=== PATIENT | female | born 1970 | race Hispanic/Latino ===

== ENCOUNTER 2019-07-06 | Emergency (ER) | payer SELFPAY ==
[2019-07-06] MEDS ORDERED: METOPROL TAR25 MG PO (18:58)
[2019-07-06 19:42] LABS: HEMATOCRIT 38.1 % (37.0-47.0); HEMOGLOBIN 12.5 g/dl (12.0-16.0); IMMATURE GRANULOCYTES 0.3 % (0.0-5.0); MEAN CORPUSCULAR HGB 29.1 pG CALC (26.0-32.0); MEAN CORPUSCULAR HGB CONC 32.8 g/L CALC (32.0-36.0); NEUT# 3.44 thou/uL (2.00-7.15); RED BLOOD COUNT 4.29 mill/uL (4.20-5.60)
[2019-07-06 19:45] LABS: MEAN CELL VOLUME 88.8 fL CALC (80.0-100.0)
[2019-07-06 19:59] LABS: ALKALINE PHOSPHATASE 128 u/l (38-126); ANION GAP 13 (6-22 (CALC)); BILIRUBIN, TOTAL 0.3 mg/dL (0.0-1.4); BUN 15 mg/dL (7-17); BUN/CREATININE RATIO 23 (12-20 (CALC)); CARBON DIOXIDE 22 mmol/l (22-30); CHLORIDE 106 mmol/l (95-108); CREATININE 0.7 mg/dL (0.5-1.0); GFR > 60 ML/MIN (>=60 (CALC)); GFR FOR AFR.AMER. > 60 ML/MIN (>=60 (CALC)); POTASSIUM 4.3 mmol/l (3.5-5.1); SGOT/AST 18 u/l (14-36); SODIUM 137 mmol/l (137-146); TOTAL PROTEIN 7.3 g/dL (6.3-8.2)
[2019-07-06 20:00] LABS: ALBUMIN 4.2 g/dL (3.2-5.0)
[2019-07-06 20:16] LABS: BETA-HCG, QUANT(RESULT NUMBER) <2 mIU/mL
[2019-07-06] MEDS ORDERED: NAPROXEN DR500 MG PO (21:16)
== END 2019-07-06 22:03 | disposition home or self-care (01) | DRG 761 ==
DX: N93.8 Other specified abnormal uterine and vaginal bleeding (principal); R10.2 Pelvic and perineal pain; I10 Essential (primary) hypertension
CPT/HCPCS: Q9967

== ENCOUNTER 2021-07-17 07:19 | Day surgery (SDC) | payer OTHER ==
[~2021-07-17] VITALS: Ht 154.9 cm; Wt 71.7 kg
[~2021-07-17 07:19] MED LIST: DICLOFEN POT50 MG PO; LISINOP/HCTZ1 TAB PO; METOPROL TAR25 MG PO; NAPROXEN DR500 MG PO
[2021-07-17 09:53] VITALS: BP 135/83
== END 2021-07-17 10:00 | disposition home or self-care (01) | DRG 951 ==
LOC: ENDO 07:19
PROVIDERS: ATTEND Surgery
PROC: 0DJD8ZZ Inspection of Lower Intestinal Tract, Via Natural or Artificial Opening Endoscopic (ICD-10-PCS; principal; 2021-07-17)
DX: Z12.11 Encounter for screening for malignant neoplasm of colon (principal); K64.8 Other hemorrhoids